=== PATIENT | male | born 1965 | race Caucasian/White ===

== ENCOUNTER 2018-09-08 13:27 | Inpatient (IN) ==
[2018-09-08] MEDS ORDERED: VANCOMYCIN 1 GM/NS 1 GM/250 ML IVPB IV ONE ×2 (13:56→17:30)
[2018-09-08] MEDS ORDERED: NS 1,000 ML IV ONE (14:07)
--- NOTE | 2018-09-08 14:07 | PROVIDER DOCUMENTATION ---
HPI-General Adult - General Chief Complaint: Wound Recheck Stated Complaint: RETURN/RECHECK Time Seen by Provider: 09/08/18 13:31 Source: patient Allergies/Adverse Reactions: Patient Allergies Allergy/AdvReac Type Severity Reaction Status Date / Time No Known Allergies Allergy Verified 06/24/16 17:18 Home Medications: Home Medication List Medication Instructions Recorded Confirmed Last Taken Type Metformin [Glucophage] 1,000 mg PO BID #120 tablet 01/15/12 11/26/17 08/11/16 08:00 Rx 1000 MG Glimepiride [Amaryl] 4 mg PO BID AC #60 tablet 01/09/14 11/26/17 08/11/16 08:00 Rx 4 MG Amlodipine [Norvasc] 5 mg PO DAILY #30 tablet 08/26/16 11/26/17 Unknown Rx Lisinopril 20 mg PO DAILY #30 tablet 08/26/16 11/26/17 Unknown Rx Albuterol Sulfate [Proair Hfa] 8.5 gm IH 4XDAY PRN PRN #1 11/26/17 Unknown Rx hfa.[email or web address] Prednisone 5 mg PO BID #14 tab 11/26/17 Unknown Rx Hydrocodone/APAP 7.5 mg/325 mg 1 ea PO Q6H PRN PRN #20 tab 08/27/18 Unknown Rx [[place]-7.5] Ibuprofen [Motrin] 800 mg PO Q8H PRN PRN #20 tab 08/27/18 Unknown Rx Methocarbamol [Robaxin] 500 mg PO BID #10 tab 08/27/18 Unknown Rx - History of Present Illness -Gen Adult Nature of Presenting Problems: reports his 3rd digit of right hand had significant pain and swelling, along with skin starting to whiten and bluish last night. the pain and erythematous has migrating along the dorsal hand towards his shoulder. he had a laceration suture on that same area for a total of 12 days. +subjective fever, nausea. has only taken pain medicine. history of diabetes uncontrolled. Review of Systems - Adult - REVIEW OF SYSTEMS - ADULT Constitutional: reports: no symptoms reported Eyes: reports: no symptoms reported Ears, Nose, Mouth & Throat: reports: no symptoms reported Cardiovascular: reports: no symptoms reported Respiratory: reports: no symptoms reported Gastrointestinal: reports: no symptoms reported Genitourinary: reports: no symptoms reported Musculoskeletal: reports: no symptoms reported Integumentary: reports: no symptoms reported Neurological: reports: no symptoms reported Psychiatric: reports: no symptoms reported Endocrine: reports: no symptoms reported Hematologic/Lymphatic: reports: no symptoms reported Allergic/Immunologic: reports: no symptoms reported All Other Systems: Reviewed and Negative Past History - Adult - PAST MEDICAL HISTORY-ADULT Review of Records: reports: Old Records Reviewed, Nursing Assessment Review, Medications Reviewed, Social history reviewed & non-contributory. Major Childhood Illnesses: reports: denies history Cardiovascular: reports: HTN, hyperlipidemia Respiratory: reports: denies history Gastrointestinal: reports: denies history Obstetrical/Gynecological: reports: denies history Genitourinary: reports: denies history Musculoskeletal: reports: denies history Neurological: reports: denies history Endocrine/Immune: reports: Diabetes Other Conditions: reports: denies history - PRIOR SURGERIES/PROCEDURES Surgical/Procedure History: reports: none - IMMUNIZATION STATUS Childhood Immunizations: See Nurse Assessment Flu Vaccine: See Nurse Assessment - FAMILY HISTORY Family History: reviewed, not pertinent - SOCIAL HISTORY Smoking: denies Substance Use: none/never Alcohol Use Frequency: never Living Situation: family Physical Exam-General - PHYSICAL EXAM-ADULT Initial Vital Signs Reviewed: Yes - CONSTITUTIONAL General Appearance: mild distress, moderate distress, obese - EYES Eyes: PERRL/EOMI, pink conjunctivae - HEAD, EARS, NOSE, MOUTH & THROAT HENMT: normocephalic/atraumatic, moist mucous membranes, normal ENT inspection - NECK Neck: non-tender, full range of motion - RESPIRATORY Respiratory: chest non-tender, lungs clear, normal breath sounds - CARDIOVASCULAR Cardiovascular: normal peripheral pulses, regular rate, rhythm, no edema - GASTROINTESTINAL (ABDOMEN) Abdominal Exam: normal bowel sounds, non tender, soft - LYMPHATIC Lymphatic: no adenopathy - MUSCULOSKELETAL Back Exam: normal inspection, no CVA tenderness, no vertebral tenderness Extremity: erythema, inflammation, swelling, tenderness (3rd digit of right hand) Peripheral Pulses: radial (R): 2+, radial (L): 2+ - SKIN Integumentary: ecchymosis, purpura, rash, swelling - NEUROLOGIC Neurologic: motor weakness (due to swelling and pain), other (sensory pressure of the right middle hand) - PSYCHIATRIC Psych/Mental Status: oriented x 3 Progress - PLAN OF CARE/RESULTS Progress/Plan/Lab Results: Vital Signs - 8 hr 09/08/18 13:38 Temperature 98.0 F Pulse Rate 106 H Respiratory Rate 18 Blood Pressure 160/095 O2 Sat by Pulse Oximetry 96 Orders Category Date Time Status FINGER(S)-RIGHT [RAD] Stat Exams 09/08/18 13:55 Ordered CBC WITH ELECTRONIC DIFF [HEME] Stat Lab 09/08/18 13:55 Uncollected COMPREHENSIVE METABOLIC PANEL [CHEM] Stat Lab 09/08/18 13:55 Uncollected Vancomycin 1 gm/Ns Med 09/08/18 13:56 Active 1 gm in 250 ml IV NOW Result Diagrams: 09/08/18 14:03 09/08/18 14:03 - CONSULTS/PCP/HOSPITALIST Notification #1 *Consult/PCP/Hospitalist*: Dr. Chaves Time Discussed: 15:15 Consult Disposition: Admit Departure - Departure Date of Disposition Decision: 09/08/18 Time of Disposition Decision: 14:14 DIAGNOSIS: Cellulitis of hand, right, Hyperglycemia due to type 2 diabetes mellitus Disposition: ADMITTED INPATIENT 09 Certified Medical Emergency: Emergent Condition: Stable Referrals and Follow-Ups: None,PCP [Primary Care Provider] - - Critical Care Note This patient required my direct & personal management of CC.: No Attestation - Physician/ PATRICE Attestation The physician spent face to face time with patient:: Yes Advanced Practice Provider documentation review:: Supervising physician onsite and consulted in the evaluation and care of this patient. The physician did have a face to face encounter with the patient.
[2018-09-08 14:32] LABS: BASO# 0.04 X1000 (0.0-0.2); BASO% 0.3 % (0.0-0.8); EOS# 0.11 X1000 (0.0-0.7); EOS% 0.9 % (0.0-10.0); HEMATOCRIT 38.3 % (42.0-52.0); HEMOGLOBIN 13.9 g/dL (14.0-18.0); IMM GRAN# 0.05 X1000 (0.0-0.04); IMM GRAN% 0.4 % (0.0-0.5); LYMPH# 1.23 X1000 (1.2-3.4); LYMPH% 9.9 % (20.5-51.1); MCH 28.5 PG (27-31); MCHC 36.3 g/dL (33-37); MCV 78.5 FL (81-99); MONO# 1.02 X1000 (0.11-0.59); MONO% 8.2 % (1.7-9.3); MPV 10.9 FL (7.4-10.4); NEUT% 80.3 % (42.2-75.2); PLT 264 X1000 (130-400); RBC 4.88 XMIL (4.7-6.1); RDW 12.4 % (11.5-14.5); WBC 12.45 X1000 (4.8-10.8)
--- NOTE | 2018-09-08 14:45 | Diag Imaging Result Doc PS360 ---
EXAM: FINGER(S)-RIGHT HISTORY: finger infection TECHNIQUE: Three views COMPARISON: None. FINDINGS: There is extensive fusiform soft tissue swelling of the long finger. This extensive soft tissue swelling can be seen with dactylitis secondary to psoriasis. No focal erosions are appreciated, however. No fracture, dislocation, or periostitis. IMPRESSION: Extensive soft tissue swelling. No evidence for acute traumatic injury or focal bony destruction. Electronically signed by Lucila Lee 09/08/2018 2:43 PM
[2018-09-08 14:49] LABS: ESTIMATED GFR > 60
[2018-09-08] MEDS ORDERED: MORPHINE IV ONE (14:57)
[2018-09-08] MEDS ORDERED: ZOFRAN IV ONE (14:58)
[2018-09-08] MEDS ORDERED: NORCO-10 PO ONE (14:58)
[2018-09-08 15:02] LABS: AGAP 12; ALBUMIN 3.8 g/dL (3.5-5.0); ALKALINE PHOSPHATASE 216 U/L (32-122); BUN 16 mg/dL (8-22); CALCIUM 8.7 mg/dL (8.8-10.2); CHLORIDE 91 mmol/L (98-107); COSMO 283; CREATININE 0.9 mg/dL (0.7-1.2); GOT 10 U/L (10-34); GPT 10 U/L (10-44); POTASSIUM 3.9 mmol/L (3.5-5.1); SODIUM 126 mmol/L (136-145); TCO2 23 mmol/L (25-35)
[2018-09-08 15:04] LABS: GLUCOSE 611 mg/dL (70-104)
[2018-09-08] MEDS ORDERED: HUMULIN R SUBQ ONE (15:04)
[2018-09-08 15:05] LABS: INR 0.89; PROTIME 12.5 Seconds (11.0-16.0); PTT 27.5 Seconds (22.3-41.8)
[2018-09-08] MEDS ORDERED: HUMULIN R (PARKWAY) ONE (15:08)
[2018-09-08] MEDS ORDERED: CLINDAMYCIN 600 MG/D5W 600 MG/50 ML IVPB IV SCH (16:00)
--- NOTE | 2018-09-08 16:36 | HISTORY AND PHYSICAL ---
PRIMARY CARE PHYSICIAN: The patient does not have a primary care physician. CHIEF COMPLAINT: Wound recheck. HISTORY OF PRESENT ILLNESS: This is a 53-year-old male that had a laceration to his right hand approximately 12 days ago that was sutured. He since developed last night increased pain and swelling to the 3rd digit of his right hand with pain migrating to the dorsal area of his hand towards his shoulder. The patient is positive for nausea and a fever and states that he also does not watch his blood sugars closely. Labs findings from the ER show a glucose of 611, WBC 12.45, hemoglobin 13.9, hematocrit 38.8. PAST MEDICAL HISTORY: 1. Hypertension. 2. Hyperlipidemia. 3. Diabetes. PAST SURGICAL HISTORY: None. SOCIAL HISTORY: He denies smoking, alcohol use or illicit drug use and states that he lives alone. PAST FAMILY HISTORY: Positive for hypertension with his mother. ALLERGIES: The patient has no known allergies. HOME MEDICATIONS: Metformin 100 mg p.o. b.i.d., Amaryl 4 mg p.o. b.i.d. AC, Norvasc 5 mg p.o. daily, Lisinopril 20 mg p.o. daily, albuterol inhaler p.r.n. as needed, prednisone 5 mg p.o. b.i.d. x 14 days, [place] 7.5 mg q 6 p.r.n., ibuprofen 800 mg q 8 p.r.n., Robaxin 500 mg p.o. b.i.d. REVIEW OF SYSTEMS: General: The patient states that he feels kind of feverish. HEENT: The patient has no congestion, no complaints of headache or vision changes, no dizziness. Neck: Does not complain of neck pain. Endocrine: The patient does not complain of excessive thirst, urination or intolerance to heat or cold at this time. Cardiovascular: The patient denies palpitations, chest pain, orthopnea or dyspnea with exertion. Respiratory: The patient has no complaints of cough or sputum. GI: Anorexia, the patient states that he does have slight nausea, denies vomiting, denies any pain to any 4 quadrants. : The patient denies any urinary symptoms. Musculoskeletal: The patient does complain of some muscle soreness over left ribs where he incurred a fall when he hurt his finger. Left-sided pain where the patient fell. Neurologic: The patient denies syncope, dizziness, tremor, vertigo. Hematological: No bruising noted. Psych: No history of mental illness. Skin: Right 3rd digit of right hand is purple discoloration at suture site and red, warmth and pain to right hand. LABORATORY AND DIAGNOSTICS: WBC 12.45, hemoglobin 13.9, hematocrit 38.5, neutrophils 80.3, lymphs 9.9, PT 12.5, INR 0.89, PTT 27.5. Chemistry: sodium 126, potassium 3.9, chloride 91, carbon dioxide 23, glucose 611, calcium 8.7, alkaline phosphate 2.16. Toxicology shows acetone level small A. Finger x-ray shows extensive soft tissue swelling. No evidence for acute traumatic injury or focal bony destruction. PHYSICAL EXAMINATION: VITAL SIGNS: Temperature 98.1; pulse rate 97; respiratory rate 18; blood pressure 161/109; 98% on room air. GENERAL: This is a well-appearing 53-year-old male. HEENT: Normocephalic. PERRLA. NECK: Trachea is midline. No JVD. CARDIOVASCULAR: No murmurs, gallops or rubs. Rate and rhythm regular. RESPIRATORY: Lung sounds are clear to auscultation bilaterally. No labored breathing noted. No accessory muscle use. GASTROINTESTINAL: Soft, nontender and nondistended with bowel sounds present in all 4 quadrants. NEUROLOGICAL: Cranial nerves Dictated by BARB Argueta for Parker Madrid MD cc: Parker Madrid MD [facility]
--- NOTE | 2018-09-08 16:42 | HISTORY AND PHYSICAL ---
ADDENDUM/CONTINUATION: NEUROLOGICAL: Cranial nerves II through XII intact. MUSCULOSKELETAL: All extremities 5/5 on all 4 extremities. EXTREMITIES: The right 3rd digit on the right hand has increased swelling, redness and warmth noted to the site with purple area around the 3rd digit. SKIN: Warm, dry and intact. Third digit right hand purple discoloration with reddness, warmth and swelling to right hand ASSESSMENT: 1. Cellulitis. 2. Hyperglycemia. 3. Diabetes. 4. Hypertension. ORDERS: Will admit to [place] and place the patient on diabetic ADA diet. Will do Accu-Checks and place on moderate sliding scale insulin and resume home medications for blood sugar control. Will maintain IV fluids. Will order clindamycin 600 mg IV q 8 and vancomycin 1 Gram. Will resume all home meds. Will treat for pain as needed. Will monitor blood pressure and resume home meds. Will obtain lab work in the a.m. Further recommendations will be pending per the patient's clinical course and response to therapy. Dictated by BARB Argueta for Parker Madrid MD Addendum: Patient seen and examined by myself. Agree with BARB note. It reflects my assessment and plan. Patient is being admitted to hospital for cellulitis of right middle finger. Will start broad spectrum antibiotics and will consult General surgery. Will optimize diabetes control as well. cc: Parker Madrid MD [facility]
[2018-09-08] MEDS ORDERED: DEMEROL IV PRN (16:44)
[2018-09-08] MEDS ORDERED: TYLENOL PO PRN (16:44)
[2018-09-08] MEDS ORDERED: VANCOMYCIN IV PER PHARMACY MISC SCH ×2 (16:45→17:24)
[2018-09-08 16:59] LABS: URINE SOURCE CLEAN CATCH
[2018-09-08 17:06] LABS: BILIRUBIN URINE NEGATIVE (NEGATIVE); BLOOD URINE NEGATIVE (NEGATIVE); CLARITY CLEAR (CLEAR); COLOR YELLOW; KETONE URINE 1+(Small) mg/dL (NEGATIVE); LEUKOCYTES URINE NEGATIVE (NEGATIVE); NITRITE URINE NEGATIVE (NEGATIVE); PH URINE 6.5; PROTEIN URINE TRACE mg/dL (NEGATIVE); UROBILINOGEN URINE NORMAL
--- NOTE | 2018-09-08 17:43 | HISTORY AND PHYSICAL ---
ADDENDUM ADD TO PLAN: Fasting blood sugars and Accu-Chek. Diabetic diet. Will obtain blood cultures, A1c, CBC with differential, and a CMP in the morning. Portable chest x-ray. Clindamycin 600 mg q 8 hours, hydrocodone as needed for pain, insulin per moderate protocol, Tylenol 650 mg p.r.n. pain, normal saline at 75 mL an hour, Zofran 4 mg q 4 hours as needed, vancomycin per Pharmacy protocol. Activity, up with assistance. Telemetry. Vital signs q 4 hours. Dictated by BARB Argueta for Parker Madrid MD cc: Parker Madrid MD
[2018-09-08 18:01] LABS: URINE BACTERIA NEGATIVE /HFP; URINE EPITHELIAL CELLS <10 /HPF (<10); URINE RBC <10 /HPF (<10); URINE WBC <10 /HPF (<10)
[2018-09-08 18:02] LABS: URINE CAST NONE SEEN /LPF; URINE CRYSTAL NONE SEEN /HPF; URINE YEAST NONE SEEN /HPF
[2018-09-08] MEDS: TORADOL IV SCH ×2 (18:18→23:47)
[2018-09-08] MEDS: NS 1,000 ML IV SCH ×2 (18:18→23:53)
[2018-09-08] MEDS: ZOSYN 3.375 GM in NS 50 ML IV SCH ×2 (18:19→23:48)
[2018-09-08 18:28] LABS: BASO# 0.04 X1000 (0.0-0.2); BASO% 0.3 % (0.0-0.8); EOS# 0.16 X1000 (0.0-0.7); EOS% 1.3 % (0.0-10.0); HEMATOCRIT 39.2 % (42.0-52.0); HEMOGLOBIN 13.9 g/dL (14.0-18.0); IMM GRAN# 0.06 X1000 (0.0-0.04); IMM GRAN% 0.5 % (0.0-0.5); LYMPH# 1.76 X1000 (1.2-3.4); LYMPH% 14.1 % (20.5-51.1); MCH 28.7 PG (27-31); MCHC 35.5 g/dL (33-37); MONO# 0.84 X1000 (0.11-0.59); MONO% 6.7 % (1.7-9.3); MPV 10.5 FL (7.4-10.4); NEUT# 9.62 X1000 (1.4-6.5); NEUT% 77.1 % (42.2-75.2); PLT 248 X1000 (130-400); RBC 4.84 XMIL (4.7-6.1); RDW 12.4 % (11.5-14.5); WBC 12.48 X1000 (4.8-10.8)
[2018-09-08 18:31] LABS: INR 0.95; PROTIME 13.2 Seconds (11.0-16.0)
[2018-09-08 18:42] LABS: ESTIMATED GFR > 60
[2018-09-08 18:45] LABS: ALBUMIN 3.5 g/dL (3.5-5.0); ALKALINE PHOSPHATASE 193 U/L (32-122); BUN 13 mg/dL (8-22); CALCIUM 8.4 mg/dL (8.8-10.2); CK PROFILE 223 U/L (24-204); COSMO 284; CREATININE 0.8 mg/dL (0.7-1.2); GOT 10 U/L (10-34); GPT 10 U/L (10-44); TOTAL PROTEIN 6.1 g/dL (6.3-8.3)
[2018-09-08 18:46] LABS: AGAP 12; CHLORIDE 95 mmol/L (98-107); POTASSIUM 4.2 mmol/L (3.5-5.1); SODIUM 132 mmol/L (136-145); TCO2 25 mmol/L (25-35)
[2018-09-08 18:47] LABS: BANDS 2 % (0-1); EOS 1 % (1-10); HYPOCHROM 2+; LYMPHS 22 % (21-51); MONO 6 % (1-9); SEGS 69 % (42-75)
[2018-09-08 18:55] LABS: GLUCOSE 448 mg/dL (70-104)
[2018-09-08 19:01] LABS: CK INDEX 0.5 (0.0-2.5); CK-MB 1.21 ng/mL (0.0-5.0)
[2018-09-08] MEDS: HUMALOG (PARKWAY) SUBQ SCH ×2 (19:39→21:54)
--- NOTE | 2018-09-08 19:55 | Diag Imaging Result Doc PS360 ---
EXAM: CHEST-1 VIEW INDICATION: sepsis protocol TECHNIQUE: One view COMPARISON: 08/27/2018 FINDINGS: Minimal left basilar subsegmental atelectasis is approximately stable. The lungs are clear, otherwise. No new consolidation is identified. The cardiac silhouette is stable. IMPRESSION: Stable chest. Electronically signed by Herman Amaya 09/08/2018 7:53 PM
--- NOTE | 2018-09-08 20:19 | OPERATIVE NOTE ---
PROCEDURE DATE: 09/08/2018 PREOPERATIVE DIAGNOSIS: Infected traumatic wound of the right 3rd digit. POSTOPERATIVE DIAGNOSIS: Infected traumatic wound of the right 3rd digit. PROCEDURE PERFORMED: Incision and drainage of infected wound of the right 3rd digit with excisional debridement of a 5 x 5 cm wound down to the level of the tendon. ESTIMATED BLOOD LOSS: 5 mL. SPECIMENS: None. CULTURES: None. ANESTHESIA: None. PROCEDURE DETAILS: The right hand was placed with the palmar aspect cephalad. We removed sutures using scissors intact. They are nylon and immediately there was a large emanation of pus from the wound. We opened this. It tracked posteriorly and cephalad. We debrided the bullous changes using sharp debridement. We did culture the wound. Hemostasis was noted. We felt we had adequate source control, but worried that in the distal interphalangeal joint this did probe close to the joint capsule. Dressing was applied. He tolerated it well. Continue antibiotics. I will consult Orthopedic Surgery. cc: Wayne Chow MD
--- NOTE | 2018-09-08 20:45 | GENERAL SURGERY CONSULTATION ---
DATE: 09/08/2018 HISTORY OF PRESENT ILLNESS: This is a 53-year-old gentleman with poorly-controlled diabetes. He had a fall approximately a week ago, sustaining a laceration of his right distal 3rd finger on the palmar aspect. This was repaired in the emergency department. He developed increasing pain and erythema of the digit, prompting admission for antibiotics and cellulitis. White count was noted to be elevated at 12, hematocrit was 29. The glucose was 611 on admission, and was down to 448 at the time of evaluation. Films were negative. He had a hand x-ray that showed soft tissue swelling, but no trauma or bony abnormality. PHYSICAL EXAMINATION: Vital Signs: He is a afebrile. Pulse has been in the low 100s. Blood pressure 141/91. General: He is alert, in no acute distress. HEENT: There is no scleral icterus. No cervical mass. Cardiovascular: Normal rate. Pulmonary: No increased work of breathing. Abdomen: Soft. Integument: Warm and dry. Psychiatric: Appropriate affect. Neurologic: No gross deficits. Lymphatic: No cervical adenopathy. Peripheral Vascular: He has normal radial pulses. Musculoskeletal: His right 3rd digit has bullous changes. There is a laceration with sutures in place transversely across the distal interphalangeal joint of the 3rd digit on the palmar aspect. There is fluctuant cellulitis extending up to the hand. MEDICAL HISTORY: 1. Poorly controlled diabetes. 2. Hypertension. 3. Hyperlipidemia. 4. Asthma. SURGICAL HISTORY: No vascular procedures. SOCIAL HISTORY: Denies tobacco, alcohol, or drugs. He lives alone. FAMILY HISTORY: Hypertension in his mother. REVIEW OF SYSTEMS: Ten point negative. ASSESSMENT AND PLAN: A 53-year-old gentleman with infection related to traumatic laceration of the right distal finger. The digit is perfused, but there is extensive cellulitis and purulent changes. Procedural note will follow, but I did remove the sutures and expressed a large amount of pus which I cultured. I debrided the bullous skin changes. On exam, the wound does seem to probe to the distal interphalangeal joint. I have talked to Dr. Deleon with Orthopedic Surgery about this. We will monitor. He is being transferred to [facility], [place] for further surgical intervention, although I do feel we have adequate source control currently and adequate debridement of the wound. We will monitor him going forth. Procedural note to follow. cc: Wayne Chow MD
[2018-09-09] MEDS ORDERED: CLINDAMYCIN 600 MG/D5W 600 MG/50 ML IVPB IV SCH
[2018-09-09] MEDS: ZOSYN 3.375 GM in NS 50 ML IV SCH ×3 (05:42→17:46)
[2018-09-09 05:44] LABS: BASO# 0.05 X1000 (0.0-0.2); BASO% 0.5 % (0.0-0.8); EOS# 0.33 X1000 (0.0-0.7); EOS% 3.1 % (0.0-10.0); HEMATOCRIT 36.7 % (42.0-52.0); HEMOGLOBIN 12.7 g/dL (14.0-18.0); IMM GRAN# 0.09 X1000 (0.0-0.04); IMM GRAN% 0.8 % (0.0-0.5); LYMPH# 1.55 X1000 (1.2-3.4); LYMPH% 14.4 % (20.5-51.1); MCH 28.2 PG (27-31); MCHC 34.6 g/dL (33-37); MCV 81.6 FL (81-99); MONO# 1.26 X1000 (0.11-0.59); MONO% 11.7 % (1.7-9.3); MPV 10.4 FL (7.4-10.4); NEUT# 7.49 X1000 (1.4-6.5); NEUT% 69.5 % (42.2-75.2); PLT 254 X1000 (130-400); RDW 12.7 % (11.5-14.5); WBC 10.77 X1000 (4.8-10.8)
[2018-09-09] MEDS ORDERED: VANCOMYCIN 2,000 MG in NS 500 ML IV SCH (06:00)
[2018-09-09 06:06] LABS: AGAP 12; ALB/GLOB RATIO 1.1; ALBUMIN 2.9 g/dL (3.5-5.0); ALKALINE PHOSPHATASE 143 U/L (32-122); BUN 16 mg/dL (8-22); CALCIUM 8.1 mg/dL (8.8-10.2); CHLORIDE 99 mmol/L (98-107); COSMO 279; ESTIMATED GFR > 60; GLUCOSE 264 mg/dL (70-104); GOT 31 U/L (10-34); GPT 7 U/L (10-44); POTASSIUM 5.6 mmol/L (3.5-5.1); SODIUM 134 mmol/L (136-145); TCO2 23 mmol/L (25-35); TOTAL BILIRUBIN 0.55 mg/dL (0.20-1.00); TOTAL PROTEIN 5.6 g/dL (6.3-8.3)
[2018-09-09] MEDS: TORADOL IV SCH ×2 (06:35→13:31)
[2018-09-09] MEDS: HUMALOG SUBQ SCH ×4 (06:55→21:24)
[2018-09-09] MEDS: VANCOMYCIN 2,000 MG in NS 500 ML IV SCH ×2 (07:18→21:22)
[2018-09-09] MEDS: DEMEROL IV PRN ×3 (07:18→21:39)
--- NOTE | 2018-09-09 07:18 | Diag Imaging Result Doc PS360 ---
EXAM: CHEST-PORTABLE 09/09/2018 HISTORY: dyspnea TECHNIQUE: AP portable at 0552 COMMENT: Compared to 09/08/2018 the left costophrenic sulcus is clear. There is no evidence of acute cardiac or pulmonary disease otherwise. IMPRESSION: Resolution of left lower lobe atelectasis. Electronically signed by Trent Hackett 09/09/2018 7:15 AM
[2018-09-09] MEDS: CLINDAMYCIN 600 MG/D5W 600 MG/50 ML IVPB IV SCH ×2 (10:11→16:07)
--- NOTE | 2018-09-09 10:25 | ORTHOPAEDICS CONSULTATION ---
DATE: 09/09/2018 HISTORY OF PRESENT ILLNESS: Mr. Villatoro, 53-year-old male, presented to the emergency department yesterday on 09/08/2018 with infected finger. He was admitted to the hospital for per the hospitalist service. Dr. Chow was consulted from general surgery standpoint. He had debrided his right middle finger at bedside, said there was a lot of pus that came out. There was a lot of skin that was there as well. Then, after debridement he is consulted us because it looked like it probed down possibly to bone. Mr. Villatoro said that he lacerated his finger about a week or so ago. He ended up going to the ER where they put some sutures in and then he says things just got worse as far as pain and swelling. He then came back and was admitted yesterday. He is an diabetic and his sugars have not been under good control. His glucose from yesterday was 411 and a recent A1c is 15. PAST MEDICAL HISTORY: 1. Diabetes not under good control. 2. Hypertension. PAST SURGICAL HISTORY: None. SOCIAL HISTORY: He denies any alcohol or smoking. He was home, has some pets. ALLERGIES: No known drug allergies. MEDICATIONS: Per the medical record. REVIEW OF SYSTEMS: Uncontrolled diabetic with the right middle finger pain. PHYSICAL EXAMINATION: General: Well-appearing male lying in hospital bed in no acute distress. Head and Neck: Normocephalic, atraumatic. Respirations: Nonlabored breathing. Cardiovascular: Regular pulse. Abdomen: Nondistended. Extremities: Right upper extremity exam: He has a laceration on the volar aspect of the middle finger, right under the DIP joint. There is no exposed tendon or bone there. I do not see any purulence coming out today. He has had some blistering that looks like it has been debrided and there was some raw dermis exposed that comes up even on the dorsal aspect of the finger. There is a little bit of erythema that extends down into the proximal phalanx area but I do not see any erythema extending down into the palm. He does not have any tenderness to palpation along the flexor tendon. He still has good capillary refill to the tip of the finger. RADIOGRAPHS: Radiographs of the right middle finger show no bony involvement. ASSESSMENT: Right middle finger infection. PLAN: Mr. Villatoro had a bedside debridement yesterday per Dr. Chow. He is on IV antibiotics. At this point, I did strongly talk to him about his diabetic control. His A1c is 15 and he has had terrible diabetic control the past several months and really has just neglected controlling his diabetes really over the past year it sounds like and so I discussed with him we need to get his diabetes under control which will be paramount for healing his finger. He will remain on IV antibiotics. We will continue to monitor. If he continues to get better then we will treat this nonoperatively. If it looks like he started developing some purulence there or is not getting better we may end up having to go in washout of the DIP joint in the operating room. So I will see him in the morning and we may end up doing a bedside debridement if more of his skin is . cc: Onesimo Dixon MD
--- NOTE | 2018-09-09 13:23 | GENERAL SURGERY PROGRESS NOTE ---
DATE: 09/09/2018 SUBJECTIVE: He is doing okay. Says his hand feels better. No fevers overnight. He has been transferred to [place]. OBJECTIVE: Vital signs: Pulse 97, blood pressure 134. Extremities: His right finger dressing is in place. Cellulitis extending up the hand is improved. The tip of the digit is perfused. LABORATORY DATA: White count 10, hematocrit 36. His glucoses remain in the 200 to 300 range. His hemoglobin A1c was 15. ASSESSMENT AND PLAN: This is a 63-year-old gentleman with a diabetic-related infection of his right 3rd finger. Seems to be clinically improving. I talked to Dr. Dixon. He has evaluated him. Will continue local wound care and antibiotics going forward. cc: Wayne Chow MD
[2018-09-09] MEDS: NS 1,000 ML IV SCH ×2 (14:58→21:21)
[2018-09-09] MEDS ORDERED: GLUCOPHAGE PO SCH (17:00)
--- NOTE | 2018-09-09 17:20 | PROGRESS NOTE ---
DATE: 09/09/2018 SUBJECTIVE: The patient has no major complaints. His finger hurts a little bit, but overall improved. OBJECTIVE: Blood pressure 142/84, heart rate 91, respiratory rate 16, temperature 98.4 degrees.Cardiovascular: Regular rate and rhythm. Pulmonary: Bilateral breath sounds clear to auscultation. Gastrointestinal: Soft, nontender, nondistended. Bowel sounds are positive. LABORATORY DATA: White count is 10 down from 12, hemoglobin 12, hematocrit 36, platelets of 254. Sodium 134, potassium 5.6, sugar 264, creatinine was normal. PROBLEM LIST: 1. Finger cellulitis with possible traumatic wound of the right 3rd digit. We will continue antibiotics. Orthopedics and General Surgery are following the patient, possibly will need further debridement, and we will follow. The patient is on Zosyn and vancomycin. He is also on clindamycin. I am just concerned about C difficile risk, so I am just going to cut him down to Zosyn and vancomycin for right now. We will continue pain control. 2. Uncontrolled diabetes. I am not sure if this is a new diagnosis, but he is not on any medications that I know of. I do not know if he just does not take medications, but we will initiate metformin. Now according to this, he is on medications, but there are no home medications ordered so we will initiate that and follow. DISPOSITION: Pending his clinical status. Continue to monitor closely. cc: Slim Martin MD
[2018-09-09] MEDS: TORADOL IV PRN (17:47)
[2018-09-09] MEDS: GLUCOPHAGE PO SCH (17:53)
[2018-09-09] MEDS: LACTINEX PO SCH (18:13)
[2018-09-10] MEDS: ZOSYN 3.375 GM in NS 50 ML IV SCH ×2 (00:20→05:13)
[2018-09-10] MEDS: TORADOL IV PRN ×2 (02:24→14:02)
[2018-09-10 06:33] LABS: BASO# 0.04 X1000 (0.0-0.2); BASO% 0.5 % (0.0-0.8); EOS# 0.29 X1000 (0.0-0.7); EOS% 3.4 % (0.0-10.0); HEMATOCRIT 39.3 % (42.0-52.0); HEMOGLOBIN 13.2 g/dL (14.0-18.0); IMM GRAN# 0.07 X1000 (0.0-0.04); IMM GRAN% 0.8 % (0.0-0.5); LYMPH# 1.39 X1000 (1.2-3.4); LYMPH% 16.3 % (20.5-51.1); MCHC 33.6 g/dL (33-37); MCV 83.3 FL (81-99); MONO# 0.82 X1000 (0.11-0.59); MONO% 9.6 % (1.7-9.3); MPV 10.4 FL (7.4-10.4); NEUT% 69.4 % (42.2-75.2); PLT 286 X1000 (130-400); RBC 4.72 XMIL (4.7-6.1); RDW 12.9 % (11.5-14.5); WBC 8.51 X1000 (4.8-10.8)
[2018-09-10] MEDS ORDERED: GLUCOTROL PO SCH (08:00)
[2018-09-10 08:06] LABS: AGAP 9; BUN 16 mg/dL (8-22); CALCIUM 8.4 mg/dL (8.8-10.2); CHLORIDE 102 mmol/L (98-107); COSMO 286; ESTIMATED GFR > 60; GLUCOSE 259 mg/dL (70-104); POTASSIUM 4.5 mmol/L (3.5-5.1); SODIUM 138 mmol/L (136-145); TCO2 27 mmol/L (25-35)
[2018-09-10] MEDS: VANCOMYCIN 2,000 MG in NS 500 ML IV SCH (08:40)
[2018-09-10] MEDS: GLUCOPHAGE PO SCH ×2 (08:41→17:39)
[2018-09-10] MEDS: LACTINEX PO SCH ×4 (08:55→17:11)
[2018-09-10] MEDS: HUMALOG SUBQ SCH ×4 (08:56→22:22)
[2018-09-10] MEDS: DEMEROL IV PRN (12:31)
--- NOTE | 2018-09-10 13:02 | ORTHOPAEDICS PROGRESS NOTE ---
DATE: 09/10/2018 SUBJECTIVE: Mr. Villatoro is lying in the bed this early afternoon. Overall feeling okay. He really had not taken much pain medicine today. OBJECTIVE: Right Upper Extremity Examination: I took the dressing off. It looked like he did have a little bit more skin that was there and so I excisionally debrided the skin that was around there. There was a little bit on the palmar aspect of the tip of the finger. It had a little bit of pus under it. After I debrided the skin over it though, the tissue underneath looked good. I debrided a little bit more skin around that area. He did have some new skin buds forming. I did not see any erythema extending into the palm. He had tolerated the procedure well. No complications. ASSESSMENT: 1. Right middle finger cellulitis. 2. Right middle finger laceration with infection. PLAN: Mr. Villatoro grew out MRSA from his culture. He is currently on vancomycin and Zosyn. Once they get complete sensitivities, probably able to tailor the antibiotics. More than likely, he will need a PICC line since the infection did probe to bone when Dr. Scherer initially debrided everything. We will continue to follow from an orthopedic standpoint. I will see him in the morning and change his dressings in the morning. cc: Onesimo Dixon MD
--- NOTE | 2018-09-10 15:42 | PROGRESS NOTE ---
DATE: 09/10/2018 SUBJECTIVE: Patient has no major complaints. OBJECTIVE: Vital signs: Blood pressure is 153/84, heart rate of 86, respiratory rate 20, temperature 98.8 degrees, 100% on room air. Cardiovascular: Regular rate and rhythm. Pulmonary: Bilateral breath sounds. Clear to auscultation. GI: Soft, nontender, nondistended. Bowel sounds are positive. LABORATORY DATA: White count 8, hemoglobin and hematocrit 13 and 39, platelets 286,000. Basic was normal. Sugars have been better, at least in the 200s when they were in the 400s and 300s and now they are in the 200s. ASSESSMENT AND PLAN: Finger cellulitis with traumatic wound, now methicillin-resistant Staphylococcus aureus infection. Currently on vancomycin. I do not have final sensitivities yet. We will continue empiric antibiotics. We encouraged compliance with him. So we will continue to monitor closely. DISPOSITION: Anticipate discharge soon. We will try to get social work to assist him with his medications. cc: Slim Martin MD
[2018-09-10] MEDS: GLUCOTROL PO SCH (22:22)
[2018-09-10] MEDS: ZOFRAN IV PRN (22:23)
--- NOTE | 2018-09-11 06:43 | GENERAL SURGERY PROGRESS NOTE ---
DATE: 09/11/2018 SUBJECTIVE: Patient seems to be doing okay. OBJECTIVE: Vital Signs: Patient is currently afebrile. His vital signs stable. General: No acute distress. HEENT: Normocephalic, atraumatic. Pupils equal, round, reactive to light. Mucous membranes moist. Oropharynx benign. Neck: Supple. Trachea midline. Cardiovascular: Regular rate and rhythm. Lungs: Grossly clear. Chest wall with some tenderness. Abdomen: Soft, nontender. Extremities: Wound noted to the right hand and finger. Dressing intact. Vascular: All extremities perfused. Neurologic: Grossly intact. Skin: Wound as noted above. ASSESSMENT AND PLAN: A 53-year-old gentleman with an infection of the right 3rd finger status post trauma. 1. Right finger infection. At this time, continue local wound care. Dr. Dixon with orthopedic surgery has seen the patient. We will defer to them. 2. Rib fractures. At this time, he is several weeks out from his fall home but still continues with nonoperative management. cc: Jez Alegria MD
[2018-09-11 06:53] LABS: BASO# 0.04 X1000 (0.0-0.2); BASO% 0.5 % (0.0-0.8); EOS# 0.38 X1000 (0.0-0.7); EOS% 4.6 % (0.0-10.0); HEMATOCRIT 40.2 % (42.0-52.0); HEMOGLOBIN 13.6 g/dL (14.0-18.0); IMM GRAN# 0.07 X1000 (0.0-0.04); IMM GRAN% 0.9 % (0.0-0.5); LYMPH% 18.2 % (20.5-51.1); MCH 28.3 PG (27-31); MCHC 33.8 g/dL (33-37); MCV 83.8 FL (81-99); MONO% 9.7 % (1.7-9.3); MPV 10.8 FL (7.4-10.4); NEUT# 5.44 X1000 (1.4-6.5); NEUT% 66.1 % (42.2-75.2); PLT 291 X1000 (130-400); RDW 13.1 % (11.5-14.5); WBC 8.23 X1000 (4.8-10.8)
[2018-09-11 07:36] LABS: CALCIUM 9.2 mg/dL (8.8-10.2); CREATININE 1.7 mg/dL (0.7-1.2); POTASSIUM 4.5 mmol/L (3.5-5.1)
--- NOTE | 2018-09-11 07:49 | ORTHOPAEDICS PROGRESS NOTE ---
DATE: 09/11/2018 SUBJECTIVE: Mr. Villatoro is lying in bed this morning, overall feeling okay. OBJECTIVE: Right upper extremity exam: I took his dressing off. He did have some drainage on the dressing. For the most part, he has a lot of good granulation tissue. He is making some skin buds on more of the volar aspect, right at the DIP joint. I did debride a little bit of fibrinous tissue, but got back to healthy-appearing tissue in that whole track, and I did not probe to bone there today. I then irrigated the wound out with normal saline, and then wrapped it with Telfa, 4 x 4, and Alisha. He tolerated the procedure well. No complications. ASSESSMENT: 1. Right middle finger cellulitis. 2. Diabetic hand wound. PLAN: Mr. Villatoro is going to continue on his IV antibiotics. Hopefully, they will get final cultures back and we can tailor the antibiotics. I will check him one more time in the morning. If everything looks pretty decent in the morning, I would be okay with him being discharged with appropriate IV antibiotics. He will need either home health to come out and help him with the dressing changes, or to follow up in the [facility] to do dressing changes. cc: Onesimo Dixon MD
[2018-09-11] MEDS: HUMALOG SUBQ SCH ×4 (08:06→22:41)
[2018-09-11] MEDS: GLUCOPHAGE PO SCH ×2 (08:42→17:36)
[2018-09-11] MEDS: GLUCOTROL PO SCH ×2 (08:42→22:41)
[2018-09-11] MEDS: LACTINEX PO SCH ×3 (08:45→17:36)
[2018-09-11] MEDS: DEMEROL IV PRN ×2 (11:33→20:25)
[2018-09-11] MEDS ORDERED: NS 1,000 ML IV ONE (23:50)
--- NOTE | 2018-09-12 00:07 | PROGRESS NOTE ---
DATE: 09/11/2018 SUBJECTIVE: The patient has no major complaints. Pain is stable. OBJECTIVE: Blood pressure 149/91, heart rate of 108, respiratory rate is 16, temperature 99.1 degrees, 98% on room air.Cardiovascular: Regular rate and rhythm. Pulmonary: Bilateral breath sounds, clear to auscultation. GI: Soft, nontender, nondistended. Bowel sounds are positive. His right hand is bound, and there is erythema and cellulitis in his right hand. LABORATORY DATA: White count 8, hemoglobin and hematocrit 13 and 40, platelets 291,000. Basic was normal. Creatinine, though, has jumped up to 1.7. ASSESSMENT AND PLAN: Problem list: 1. Right hand cellulitis. We will continue empiric antibiotics. He seems to be doing okay. I am going to switch him to clindamycin because of his renal insufficiency. 2. Diabetes. Appears relatively well controlled. We will continue to follow closely. 3. Acute kidney injury. We will stop medications. Start hydration and monitor closely. Check urine electrolytes. 4. Disposition pending his clinical status. cc: Slim Martin MD
[2018-09-12] MEDS: CLINDAMYCIN 600 MG/NS 600 MG/50 ML IVPB IV SCH ×3 (02:15→17:48)
[2018-09-12 03:01] LABS: UR CREAT RANDOM 77.6 mg/dL (14-26); UR PROT RANDOM 12.2 mg/dL
--- NOTE | 2018-09-12 05:28 | GENERAL SURGERY PROGRESS NOTE ---
DATE: 09/12/2018 SUBJECTIVE: Patient seems to be doing okay. Reviewed notes from Dr. Dixon. Wound was debrided a little bit yesterday. OBJECTIVE: Vital Signs: Patient is currently afebrile. His vital signs are stable. General: No acute distress. HEENT: Normocephalic, atraumatic. Pupils equal, round, reactive to light. Mucous membranes moist. Oropharynx benign. Neck: Supple. Trachea midline. Cardiovascular: Regular rate and rhythm. Lungs: Grossly clear. Chest wall with some tenderness. Abdomen: Soft, nontender, nondistended. Extremities: Wound noted in the right hand and fingers. Dressings intact. Vascular: All extremities perfused. Neurologic: Grossly intact. Skin: No signs of jaundice. Wound as noted above. ASSESSMENT AND PLAN: A 53-year-old gentleman with infection in right 3rd finger, status post trauma. 1. Right finger infection. At this time, continue local wound care. Dr. Dixon is following and we will defer to them. 2. Rib fracture. At this time, continue nonoperative management. cc: Jez Alegria MD
[2018-09-12 05:53] LABS: BASO# 0.03 X1000 (0.0-0.2); BASO% 0.4 % (0.0-0.8); EOS# 0.26 X1000 (0.0-0.7); EOS% 3.8 % (0.0-10.0); HEMATOCRIT 38.2 % (42.0-52.0); HEMOGLOBIN 12.7 g/dL (14.0-18.0); IMM GRAN# 0.06 X1000 (0.0-0.04); IMM GRAN% 0.9 % (0.0-0.5); LYMPH# 1.37 X1000 (1.2-3.4); LYMPH% 20.1 % (20.5-51.1); MCH 27.8 PG (27-31); MCHC 33.2 g/dL (33-37); MCV 83.6 FL (81-99); MONO# 0.77 X1000 (0.11-0.59); MONO% 11.3 % (1.7-9.3); NEUT# 4.33 X1000 (1.4-6.5); NEUT% 63.5 % (42.2-75.2); PLT 306 X1000 (130-400); RBC 4.57 XMIL (4.7-6.1); RDW 12.6 % (11.5-14.5); WBC 6.82 X1000 (4.8-10.8)
[2018-09-12 06:12] LABS: POTASSIUM 4.6 mmol/L (3.5-5.1)
[2018-09-12 06:13] LABS: CALCIUM 8.9 mg/dL (8.8-10.2); CREATININE 1.6 mg/dL (0.7-1.2)
[2018-09-12] MEDS: NORCO-7.5 PO PRN ×2 (06:20→14:00)
[2018-09-12] MEDS: HUMALOG SUBQ SCH ×4 (06:48→22:32)
--- NOTE | 2018-09-12 08:04 | ORTHOPAEDICS PROGRESS NOTE ---
DATE: 09/12/2018 SUBJECTIVE: Mr. Villatoro was sleeping this morning when I came into the room. Overall, pain was controlled. OBJECTIVE: Right upper extremity exam: Took the dressing off. He is still getting more skin formation there; there is more skin there today than there was yesterday. It actually looks pretty clean overall. I did not have to do any debridement today. ASSESSMENT: Right middle finger cellulitis. PLAN: I think Mr. Villatoro is doing fairly well. I think the finger is healing. His cultures did come back MRSA and sensitive to clindamycin. The primary team will make final call on his antibiotics. I am okay with him being discharged from an Orthopedic standpoint. He will need dressing changes daily. He understands this. Unfortunately, we cannot set up home health because he does not have any insurance. I would like to see him in the clinic this next week if he is discharged today. cc: Onesimo Dixon MD
[2018-09-12] MEDS ORDERED: LASIX PO SCH (09:00)
[2018-09-12] MEDS: GLUCOTROL PO SCH ×2 (11:08→22:32)
[2018-09-12] MEDS: LACTINEX PO SCH ×3 (11:08→16:23)
[2018-09-12] MEDS ORDERED: NS 0 ML ONE (11:18)
[2018-09-12] MEDS: ZOFRAN IV PRN (14:00)
[2018-09-12] MEDS ORDERED: NS 1,000 ML IV ONE (17:32)
[2018-09-12] MEDS: NORVASC PO SCH (17:52)
--- NOTE | 2018-09-12 17:57 | PROGRESS NOTE ---
DATE: 09/12/2018 SUBJECTIVE: Patient has no major complaints. He feels better. OBJECTIVE: Vital Signs: Blood pressure 170/93, heart rate 81, respiratory rate 16, temperature 97.6 degrees, 100% on room air. Cardiovascular: Regular rate and rhythm. Pulmonary: Bilateral breath sounds. Clear to auscultation. GI: Soft, nontender, nondistended. Bowel sounds are positive. Extremities: His hand is still in a dressing. LABORATORY DATA: White count is 6, hemoglobin and hematocrit 12 and 38, platelets 306,000. Creatinine is down to 1.6. Sugar down to 134. PROBLEM LIST: 1. Right hand finger cellulitis. He is on antibiotics. Orthopedics and Surgery have been following. Dr. Dixon feels he is comfortable for discharge, which was initially intended for today, but patient developed some renal failure. 2. Type 2 diabetes is fairly well controlled. We had to adjust his medications. He is on Glucotrol 10 b.i.d. and that seems to be working right now. He had previously been on metformin, which we had to stop because of his renal insufficiency. 3. Acute kidney injury is improving. Not sure if it was related to vancomycin versus Toradol versus combination thereof, but he is improving. We will continue gentle hydration and monitor. 4. Disposition. I anticipate discharge tomorrow hopefully if stable. We will continue to monitor. cc: Slim Martin MD
[2018-09-12] MEDS: DEMEROL IV PRN (22:31)
[2018-09-13] MEDS: CLINDAMYCIN 600 MG/NS 600 MG/50 ML IVPB IV SCH ×3 (02:02→18:20)
[2018-09-13] MEDS: DEMEROL IV PRN ×2 (04:48→10:20)
[2018-09-13] MEDS: HUMALOG SUBQ SCH ×4 (06:49→21:16)
[2018-09-13 07:01] LABS: CALCIUM 9.5 mg/dL (8.8-10.2); CREATININE 1.8 mg/dL (0.7-1.2); POTASSIUM 4.7 mmol/L (3.5-5.1)
--- NOTE | 2018-09-13 10:11 | GENERAL SURGERY PROGRESS NOTE ---
DATE: 09/13/2018 Mr. Villatoro's finger is inspected. It looks clean. It is rewrapped. He will be discharged per the hospitalist when they are satisfied that his acute kidney injury is stable. We recovered his wound with saline gauze today. cc: Delano Deleon MD
[2018-09-13] MEDS: NORVASC PO SCH (10:17)
[2018-09-13] MEDS: GLUCOTROL PO SCH ×2 (10:19→21:16)
[2018-09-13] MEDS: LACTINEX PO SCH ×3 (10:20→17:31)
[2018-09-13] MEDS: ZOFRAN IV PRN (13:02)
[2018-09-13] MEDS: NS 1,000 ML IV SCH (16:22)
[2018-09-13] MEDS ORDERED: LACTULOSE PO ONE (16:41)
--- NOTE | 2018-09-13 17:56 | PROGRESS NOTE ---
DATE: 09/13/2018 SUBJECTIVE: The patient has no major complaints. OBJECTIVE: Blood pressure 172/95, heart rate of 81, respiratory rate 20, temperature 98.6 degrees, 98% on room air.Cardiovascular: Regular rate and rhythm. Pulmonary: Bilateral breath sounds, clear to auscultation. GI: Soft, nontender, nondistended. Bowel sounds are positive. LABORATORY DATA: Creatinine is still at 1.8. Sugars are overall improved. ASSESSMENT AND PLAN: 1. Right hand finger cellulitis, currently on clindamycin. Per Surgery, can go home soon. 2. Type 2 diabetes, stable on current medications. 3. Acute kidney injury, has actually gotten a little worse today. I just want to make sure the levels are as normal as possible, or at least progressing into a normal fashion before discharge. Hopefully discharge tomorrow. 4. He is complaining of some bladder pain, so we will give him stuff for his bowels, bladder scan him and see how he does. cc: Slim Martin MD
[2018-09-13 18:37] LABS: URINE SOURCE CLEAN CATCH
[2018-09-13 18:45] LABS: BILIRUBIN URINE NEGATIVE (NEGATIVE); BLOOD URINE NEGATIVE (NEGATIVE); COLOR STRAW; GLUCOSE URINE 100 mg/dL (NEGATIVE); KETONE URINE NEGATIVE (NEGATIVE); LEUKOCYTES URINE NEGATIVE (NEGATIVE); NITRITE URINE NEGATIVE (NEGATIVE); PROTEIN URINE NEGATIVE (NEGATIVE); SP GRAVITY URINE 1.007; TURBIDITY URINE CLEAR (CLEAR); UROBILINOGEN URINE NORMAL (NORMAL)
[2018-09-13 18:47] LABS: UR EPITHELIAL CELLS <10 /HPF (<10); URINE BACTERIA NEGATIVE /HPF; URINE RBC <10 /HPF (<10); URINE WBC <10 /HPF (<10)
[2018-09-13] MEDS: NORCO-10 PO PRN (21:17)
[2018-09-14] MEDS: CLINDAMYCIN 600 MG/NS 600 MG/50 ML IVPB IV SCH ×3 (02:55→18:50)
[2018-09-14] MEDS: NORCO-10 PO PRN ×3 (03:05→21:38)
[2018-09-14] MEDS: NS 1,000 ML IV SCH ×2 (05:25→15:30)
[2018-09-14] MEDS: LACTULOSE PO SCH ×3 (05:26→22:09)
[2018-09-14] MEDS: HUMALOG SUBQ SCH ×4 (06:45→21:33)
[2018-09-14 06:47] LABS: POTASSIUM 4.9 mmol/L (3.5-5.1)
[2018-09-14 06:48] LABS: CALCIUM 9.6 mg/dL (8.8-10.2); CREATININE 1.8 mg/dL (0.7-1.2)
--- NOTE | 2018-09-14 09:08 | GENERAL SURGERY PROGRESS NOTE ---
DATE: 09/14/2018 Mr. Villatoro has a temperature to 100.3 today. His renal function is not improved. Would probably allow Dr. Dixon to look at it again tomorrow prior to discharge. He will need p.o. MRSA treatment at discharge. cc: Delano Deleon MD
[2018-09-14] MEDS: GLUCOTROL PO SCH ×2 (09:47→21:32)
[2018-09-14] MEDS: NORVASC PO SCH (09:48)
[2018-09-14] MEDS: LACTINEX PO SCH ×3 (09:49→18:50)
[2018-09-14] MEDS ORDERED: SODIUM BICARBONATE 8.4% 150 MEQ in STERILE WATER INJ. 1,000 ML IV SCH (18:15)
--- NOTE | 2018-09-14 18:22 | PROGRESS NOTE ---
DATE: 09/14/2018 SUBJECTIVE: Patient has no major complaints. OBJECTIVE: Vitals: Blood pressure is 163/93, heart rate of 83, respiratory rate of 20, 98% on room air. Cardiovascular: Regular rate and rhythm. Pulmonary: Bilateral breath sounds clear to auscultation. GI: Soft, nontender, nondistended. Bowel sounds are positive. LABORATORY DATA: I do not have any further white counts; they have been okay. Creatinine still 1.8. PROBLEM LIST: 1. Hand cellulitis. We will continue antibiotics. It is sensitive to clindamycin, so we will continue that. 2. Acute on chronic renal failure. It is stable but certainly has not improved. I am a little concerned just because he only has very limited followup, and I am going to give him fluids for one more day, and we will see how his numbers look tomorrow. 3. Diabetes. Relatively well stabilized. Anticipate discharge tomorrow if stable. cc: Slim Martin MD
[2018-09-15] MEDS: CLINDAMYCIN 600 MG/NS 600 MG/50 ML IVPB IV SCH ×2 (01:41→10:00)
[2018-09-15] MEDS: HUMALOG SUBQ SCH ×5 (06:30→20:52)
[2018-09-15 06:35] LABS: CALCIUM 9.3 mg/dL (8.8-10.2); CREATININE 1.8 mg/dL (0.7-1.2); POTASSIUM 4.6 mmol/L (3.5-5.1)
[2018-09-15] MEDS: TYLENOL PO PRN (10:00)
[2018-09-15] MEDS: LACTINEX PO SCH ×3 (10:01→17:41)
[2018-09-15] MEDS: GLUCOTROL PO SCH ×2 (10:01→20:49)
[2018-09-15] MEDS: NORVASC PO SCH (10:01)
[2018-09-15] MEDS: LACTULOSE PO SCH ×2 (10:01→22:07)
--- NOTE | 2018-09-15 12:03 | DISCHARGE SUMMARY ---
ADMISSION DATE: 09/08/2018 DISCHARGE DATE: DISCHARGE DIAGNOSES: 1. Finger cellulitis, 3rd finger, right hand. 2. Acute on chronic renal failure. 3. Type 2 diabetes, uncontrolled with noncompliance. HISTORY: Briefly, this is a 53-year-old male. He came in, I think he was initially at [facility] seen by DR. Chaves, hypertensive, dyslipidemic, and diabetic. He had a wound injury on his right finger and progressive cellulitis. He was empirically placed on antibiotics. DR. Chow and Dr. Dixon were consulted. He has cellulitis with purulent changes. He had had debridement per Dr. Chow, and pus was cultured which grew out MRSA. Dr. Dixon evaluated it, and he did some debridement as well at the bedside. He was maintained on IV antibiotics for several days. I think on the Dr. Dixon, he put here that he needed a PICC line for IV antibiotics. His note on the though says MRSA sensitive to clindamycin so we will discharge him on clindamycin. Now, he with a little bit of fever today. He has actually had several bouts of fever, which he did not have previously. In any case, we are going to hold off on discharge I think because he has persistent fevers, and probably get an Infectious Disease consult as well. We will get Dr. Dixon to re-evaluate. Acute kidney injury. We still do not have a great explanation for that, but I do think it is probably related to vancomycin and Toradol. Kidney function is stable, and certainly not worse. We will continue to follow closely. cc: Slim Martin MD
[2018-09-15] MEDS: NS 1,000 ML IV SCH ×2 (12:35→17:42)
[2018-09-15 12:42] LABS: BASO# 0.04 X1000 (0.0-0.2); BASO% 0.5 % (0.0-0.8); EOS# 0.21 X1000 (0.0-0.7); EOS% 2.4 % (0.0-10.0); HEMATOCRIT 37.7 % (42.0-52.0); IMM GRAN# 0.07 X1000 (0.0-0.04); IMM GRAN% 0.8 % (0.0-0.5); LYMPH# 1.56 X1000 (1.2-3.4); LYMPH% 17.6 % (20.5-51.1); MCH 28.3 PG (27-31); MCHC 34.5 g/dL (33-37); MONO# 0.86 X1000 (0.11-0.59); MONO% 9.7 % (1.7-9.3); MPV 9.6 FL (7.4-10.4); NEUT# 6.11 X1000 (1.4-6.5); PLT 330 X1000 (130-400); RDW 12.4 % (11.5-14.5); WBC 8.85 X1000 (4.8-10.8)
[2018-09-15] MEDS ORDERED: CUBICIN 500 MG in NS 100 ML IV SCH (13:00)
--- NOTE | 2018-09-15 17:08 | INFECTIOUS DISEASE CONSULT REP ---
DATE: 09/15/2018 CONCLUSION: Patient has methicillin-resistant Staph aureus cellulitis of the right middle finger. There may be bony involvement as well. The patient's creatinine is increasing. The patient in the past 4 days has had diarrhea. He has been getting lactulose so the diarrhea could be due to that medication. However, I think it is still possible that the patient has Clostridium difficile diarrhea also. RECOMMENDATIONS: I agree with stopping vancomycin and switching the patient to daptomycin. I have ordered stool for C difficile antigen and toxin. Patient has already had an x-ray of his finger and it did not show any bone involvement. I have ordered a triple phase bone scan for tomorrow for the patient's finger to check and see if there is any evidence of early osteomyelitis of the finger. MEDICATIONS: The patient is taking daptomycin 600 mg IV daily. I increased his dose from 500 mg to 600 mg. I have discontinued clindamycin. LABORATORY STUDIES: Show CBC with a white count of 8850, hemoglobin 13 and platelet count 330,000. Creatinine is 1.8. GFR is 40. Urinalysis is negative for white blood cells or bacteria. The patient's x-ray of the right hand showed right middle finger tissue swelling but no bony abnormality. PAST MEDICAL HISTORY/REVIEW OF SYSTEMS: Eyes and ears: The patient denies trouble hearing or seeing. Neck: No stiffness. Respiratory: No cough or shortness of breath. GI: See present illness. : No dysuria or flank pain. Bones, joints, muscles: See present illness. Neurologic: No seizures. No loss of motor or sensory function. PREVIOUS HOSPITALIZATIONS AND OPERATIONS: None. MEDICAL DISEASES: Positive for diabetes mellitus and hypertension. INFECTIOUS DISEASE HISTORY: Negative for pneumonia and UTI. FAMILY HISTORY: Positive for diabetes mellitus, cancer, hypertension and stroke. SOCIAL HISTORY: [place] He is single, has a cat as a pet. He does not take his diabetic medications. He works at [employer] in [employer]. He does not smoke cigarettes, drink alcoholic beverages or abuse drugs. ALLERGIES: The patient's chart lists no known drug allergies. HOME MEDICATIONS: Include Norvasc, Cleocin, Glucotrol and Robaxin. PHYSICAL EXAMINATION: Temperature went from 100.5 to 99, pulse 81, respirations 18, blood pressure 153/86. The patient is 5 feet 9 inches tall, weighs 210 pounds.General: This is an obese, middle-aged male. He is in no acute distress. Head/eyes/ears/nose/throat: He can hear my spoken words and see near objects. He does not have any white patches on his tongue. His vision and hearing are okay. Neck: No meningismus. Lungs: Clear to auscultation. Cardiovascular: Regular heart rate. Abdomen: Soft and nontender. Bones, joints, muscles: I removed a good part of the patient's dressing on the right middle finger. The involved part of the finger was erythematous. I did not see any necrosis and I did not see any purulent drainage. Neurologic: Patient is awake. He can move his extremities. There is no tremor. His sensation was intact to touch. His memory as regarding medical condition was decreased. Thank you for the consult. cc: Kenney Munguia MD [facility]
--- NOTE | 2018-09-15 17:19 | PROGRESS NOTE ---
DATE: 09/15/2018 ADDENDUM REPORT: I am doing an addendum on my note today. It is not a discharge summary; it is a progress note. Patient had persistent fevers; however, it is very likely the fevers may be related to his IV which had been in his arm for too long. We had left it in because he did not want to be re-stuck, but that may be the source of his current fevers. He has some mild renal insufficiency. That being said, there was a documentation per Dr. Dixon about needing IV antibiotics so I did consult Dr. Munguia to evaluate that. Dr. Chow feels I think the wound is stable so I think it is possible he may be able to go home soon, but pending the bone scan evaluation for osteomyelitis, etc. He is self-pay, so home IV therapy is going to be difficult to coordinate, but we will continue to follow accordingly. Appreciate Dr. Munguia' and Dr. Chow's input and Dr. Dixon's. cc: Slim Martin MD
[2018-09-15] MEDS: NORCO-10 PO PRN ×2 (17:41→23:23)
--- NOTE | 2018-09-15 19:20 | GENERAL SURGERY PROGRESS NOTE ---
DATE: 09/15/2018 SUBJECTIVE: Had some low-grade fevers earlier today. No tachycardia. OBJECTIVE: His right third finger remains tender, and dressing changes are going well. I do not see any purulence. White count is normal. Hematocrit is 37. Creatinine is 1.8, glucose 213. He also has a right AC fossa IV that has been there since admission, and he has refused exchange. ASSESSMENT AND PLAN: This is a 53-year-old gentleman with poorly-controlled diabetes and a right third finger infection related to a laceration. Patient seems to be getting better. I do not see any exposed bone or tendon. He did have a low-grade fever. I worry that this may be coming from his old peripheral IV, and I have discussed with the nurse changing this, although he has been reluctant. Otherwise we will continue dressing changes, antibiotics per ID. His renal function is at least stable. cc: Wayne Chow MD
[2018-09-16] MEDS: NS 1,000 ML IV SCH ×2 (03:40→16:41)
[2018-09-16 06:07] LABS: BASO# 0.05 X1000 (0.0-0.2); BASO% 0.7 % (0.0-0.8); EOS# 0.25 X1000 (0.0-0.7); EOS% 3.4 % (0.0-10.0); HEMATOCRIT 37.3 % (42.0-52.0); HEMOGLOBIN 12.5 g/dL (14.0-18.0); IMM GRAN# 0.08 X1000 (0.0-0.04); IMM GRAN% 1.1 % (0.0-0.5); LYMPH# 1.62 X1000 (1.2-3.4); LYMPH% 21.8 % (20.5-51.1); MCH 27.8 PG (27-31); MCHC 33.5 g/dL (33-37); MCV 82.9 FL (81-99); MONO# 0.87 X1000 (0.11-0.59); MONO% 11.7 % (1.7-9.3); MPV 9.8 FL (7.4-10.4); NEUT# 4.55 X1000 (1.4-6.5); NEUT% 61.3 % (42.2-75.2); PLT 354 X1000 (130-400); RDW 12.5 % (11.5-14.5); WBC 7.42 X1000 (4.8-10.8)
[2018-09-16 06:23] LABS: CALCIUM 9.4 mg/dL (8.8-10.2); CREATININE 1.7 mg/dL (0.7-1.2); POTASSIUM 4.1 mmol/L (3.5-5.1)
[2018-09-16] MEDS: HUMALOG SUBQ SCH ×4 (06:42→23:26)
[2018-09-16 08:41] LABS: UR CREAT RANDOM 22.4 mg/dL (14-26); UR PROT RANDOM 5.3 mg/dL
--- NOTE | 2018-09-16 08:57 | ORTHOPAEDICS PROGRESS NOTE ---
DATE: 09/16/2018 SUBJECTIVE DATA: Mr. Villatoro is lying in the bed. He is comfortable overall. He does state that he feels like he is losing some of his vision. He says he can see everything. Everything is just starting to get blurry. OBJECTIVE DATA: Right Upper Extremity Examination: Once I took the dressing down, there was minimal drainage. It was serosanguineous. He does have really good pink new tissue forming. Everything looks really good. ASSESSMENT: Right middle finger cellulitis. PLAN: I think Mr. Villatoro, from the finger standpoint, is doing very well. Everything is looking good. There is no erythema or drainage. He is going down for a bone scan today. He is complaining of some eyesight changes. We will discuss that with the primary team and let them know. He is also complaining of headache and chills. I think from the finger standpoint, everything is looking good. Hopefully, we can figure out where these other issues are coming from. I do not see a temperature above 100 reported since yesterday morning at 7:30. We will continue to follow him and check on this finger. We do want them doing daily dressing changes. Dictated by BARB Ruvalcaba for Onesimo Dixon MD cc: BARB Ruvalcaba MD
--- NOTE | 2018-09-16 09:37 | Diag Imaging Result Doc PS360 ---
EXAM: CT HEAD W/O CONTRAST HISTORY: blurred vision TECHNIQUE: CT head without contrast. COMPARISON: None. FINDINGS: No parenchymal hemorrhage. No epidural or subdural hematoma. No subarachnoid hemorrhage. No mass identified on this noncontrasted exam. No hydrocephalus. No sinus opacification. IMPRESSION: No hemorrhage. Negative brain CT without contrast. This exam was performed using automated exposure control, adjustment of mA or kV according to patient size, and/or use of iterative reconstruction technique. Electronically signed by Francis Baltazar 09/16/2018 9:34 AM
[2018-09-16] MEDS: NORVASC PO SCH (09:56)
[2018-09-16] MEDS: LACTINEX PO SCH ×3 (09:58→18:24)
[2018-09-16] MEDS: LACTULOSE PO SCH ×2 (09:58→23:02)
[2018-09-16] MEDS: GLUCOTROL PO SCH (09:58)
[2018-09-16] MEDS: TYLENOL PO PRN (10:06)
--- NOTE | 2018-09-16 10:10 | Diag Imaging Result Doc PS360 ---
EXAM: US RENAL 2 (RETROPER) COMPLETE 09/16/2018 HISTORY: venkatesh TECHNIQUE: Renal ultrasound COMMENT: There is no evidence of hydronephrosis or mass. The urinary bladder is not distended. There are no abnormal fluid collections. The right kidney is 13.2 x 6.1 x 6.3 cm the left is 13.3 x 5.2 x 7.3 cm. IMPRESSION: The possibility of medical renal disease cannot be excluded. No evidence of obstructive uropathy. Electronically signed by Trent Hackett 09/16/2018 10:08 AM
[2018-09-16] MEDS: CUBICIN 600 MG in NS 100 ML IV SCH (12:27)
--- NOTE | 2018-09-16 14:07 | Diag Imaging Result Doc PS360 ---
EXAM: 3 PHASE BONE SCAN 09/15/2018 HISTORY: R middle finger osteomyelitis TECHNIQUE: 29.9 mCi of technetium 99m MDP. COMMENT: There is marked increased flow activity and blood pool activity in the right hand compared to the left. This is particularly true in the middle finger. There is increased blood pool pool and static activity in the middle finger particularly in the middle and distal phalanges and the base of the proximal phalanx. IMPRESSION: The possibility of osteomyelitis in the middle and the distal phalanges of the middle finger as well as at the base of the proximal phalanx cannot be excluded. Electronically signed by Trent Hackett 09/16/2018 2:05 PM
--- NOTE | 2018-09-16 17:06 | PROGRESS NOTE ---
DATE: 09/16/2018 SUBJECTIVE: The patient is resting comfortably. No acute events noted overnight. OBJECTIVE: Vital signs: T-max 100.3 degrees, blood pressure 143/89, heart rate respirations 16, O2 saturation 98% on room air. General: This is a chronically ill-appearing elderly male lying in bed in no acute distress. Heart: S1, S2 normal. Regular rate and rhythm. Lungs: Lungs equal air entry bilaterally. No crackles. No rales. Abdomen: Positive bowel sounds. Soft, nontender, nondistended. Extremities: The right hand is wrapped in a clean, dry dressing. No edema in the lower extremities. Neurologic: Neuro the patient is alert and oriented x4. LABS: Hemoglobin 12, hematocrit 37, platelets 354,000. Sodium 142, potassium 4.1, chloride 101, CO2 29, BUN 18, creatinine 1.7, glucose 75. ASSESSMENT AND PLAN: 1. 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 Continue with antibiotic therapy as directed by Dr. Munguia. Further management as per the orthopedic surgeon. 2. Acute kidney injury. Unchanged. We will continue to monitor the patient closely. The patient will likely need to follow up with the kst operator as outpatient. 3. Diabetes mellitus type 2. Continue on glipizide and sliding scale insulin. 4. Hypertension. Continue on Norvasc. 5. Deep vein thrombosis prophylaxis. We will start the patient on Lovenox. cc: Annabella Pino MD MTDD
[2018-09-16] MEDS ORDERED: LOVENOX SUBQ SCH (18:00)
[2018-09-16] MEDS: NORCO-10 PO PRN ×2 (18:19→23:42)
--- NOTE | 2018-09-16 19:50 | INFECTIOUS DISEASE PROGRESS NO ---
DATE: 09/16/2018 PRESENT ILLNESS: The patient has methicillin-resistant Staph aureus infection of the right middle finger. The patient's triple phase bone scan showed that osteomyelitis may be present. MEDICATIONS: The patient is on daptomycin. PHYSICAL EXAMINATION: Vital Signs: Temperature is 98.9 degrees, pulse 77, respirations 16, blood pressure is 143/89. General: This is an obese, middle-aged male. He is in no acute distress. Head/eyes/ears/nose/throat: He can hear my spoken words and see near objects. He does not have any white patches on his tongue. Neck: No meningismus. Lungs: Clear to auscultation. Cardiovascular: Heart rate is regular. Abdomen: Soft and nontender. Bones, joints, muscles: The patient's right middle finger has a large dressing on it. The dressing is intact. Neurologic: Patient is alert. He ambulates without difficulty. He does not have any tremor. Integument: No rash noted. LAB AND X-RAY: The patient's bone scan showed that there could be presence of osteomyelitis of the right middle finger. The patient's CBC shows a white count of 7420, hemoglobin 12.5, and platelet count 354,000. Creatinine is 1.7. GFR is 43. A triple phase bone scan showed that osteomyelitis is a possibility of being in the right middle finger. ASSESSMENT AND PLAN: The patient will have a PICC placed and then he will go to [facility] to get 8 weeks of IV daptomycin. The patient will be seen at my office at 4 weeks of treatment and after the last day of treatment. I have written for the orders for the outpatient clinic. They go as follows: Daptomycin 600 mg IV daily for 55 days. CBC with differential, creatinine, and a total CK should be drawn every Saturday. The patient will have a PICC placed tomorrow and hopefully the patient will be able to be discharged tomorrow also. I have put in a consult for Social Service to set the patient up to come to [facility] for his doses of daptomycin daily. COMORBIDITIES: He is a diabetic. cc: Kenney Munguia MD
[2018-09-17] MEDS: NS 1,000 ML IV SCH ×2 (03:09→06:41)
[2018-09-17 05:54] LABS: HEMATOCRIT 37.1 % (42.0-52.0); HEMOGLOBIN 12.5 g/dL (14.0-18.0); MCH 28.2 PG (27-31); MCHC 33.7 g/dL (33-37); MCV 83.6 FL (81-99); MPV 9.6 FL (7.4-10.4); RBC 4.44 XMIL (4.7-6.1); RDW 12.6 % (11.5-14.5); WBC 9.17 X1000 (4.8-10.8)
[2018-09-17 06:06] LABS: INR 0.92; PROTIME 13.1 Seconds (11.0-16.0)
[2018-09-17 06:16] LABS: ALB/GLOB RATIO 0.9; CREATININE 1.7 mg/dL (0.7-1.2); POTASSIUM 3.9 mmol/L (3.5-5.1); TOTAL BILIRUBIN 0.48 mg/dL (0.20-1.00); TOTAL PROTEIN 6.4 g/dL (6.3-8.3)
[2018-09-17] MEDS: TYLENOL PO PRN (08:47)
[2018-09-17] MEDS: GLUCOTROL PO SCH (08:47)
[2018-09-17] MEDS: LACTINEX PO SCH (08:48)
[2018-09-17] MEDS: NORVASC PO SCH (08:48)
[2018-09-17] MEDS: LACTULOSE PO SCH (08:51)
[2018-09-17] MEDS ORDERED: NS 250 ML ONE (09:16)
[2018-09-17] MEDS: NORCO-10 PO PRN (09:42)
[2018-09-17 12:28] VITALS: BP 156/93
[2018-09-17] MEDS: CUBICIN 600 MG in NS 100 ML IV SCH (12:34)
== END 2018-09-17 13:44 | disposition home or self-care (01) | DRG 580 ==
LOC: P.ED 13:27 → P.MEDSURG 16:50 → SUATTDRO 16:50 → 4N 21:29
PROVIDERS: ATTEND Internal Medicine
CPT/HCPCS: 36569; 36584; 70450; 71010; 71045; 73140; 76770; 78315; 80048; 80053; 80202; 81001; 82009; 82550; 82553; 82570; 82947; 82948; 83036; 83605; 83935; 84156; 84300; 84484; 85025; 85027; 85610; 85730; 87040; 87070; 87077; 87186; 87205; 96365; 96367; 96375; 99285; A9270; A9503; J0878; J1650; J1815; J1885; J2175; J2270; J2405; J2543; J3370; J7030; J7040; J7050; S0077; XXXXX